=== PATIENT | female | born 2000 | race Caucasian/White ===

== ENCOUNTER 2022-09-27 17:30 | Emergency (ER) | payer OTHER ==
[~2022-09-27] VITALS: Ht 172.7 cm; Wt 95.3 kg
[2022-09-27 17:58] VITALS: BP 152/84
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
[2022-09-27] MEDS ORDERED: BACITRACIN OINT 500 UNITS/GM PKT TP ONE (18:15)
[2022-09-27] MEDS ORDERED: IBUPROFEN 600 MG TAB PO ONE (18:15)
[2022-09-27] MEDS ORDERED: LIDOCAINE MPF 1% 10 MG/ML VIAL INJ ONE (18:15)
--- NOTE | 2022-09-27 18:18 | NUR ---
L INDEX FINGER IRRIGATED
[2022-09-27] MEDS ORDERED: BACI-416 TP (19:23)
[2022-09-27] MEDS ORDERED: IBUP-2213 PO (19:23)
[2022-09-27 19:51] VITALS: BP 152/84
--- NOTE | 2022-09-27 19:55 | NUR ---
Patient discharged with v/s stable. Written and verbal after care instructions given and explained. New rx ibuprofen bacitracin. Patient verbalized understanding. Ambulatory with steady gait. All questions addressed prior to discharge. Advised to follow up with PMD.
== END 2022-09-27 19:51 | disposition home or self-care (01) ==
LOC: MED 17:30
DX: S61.215A Laceration without foreign body of left ring finger without damage to nail, initial encounter (principal); W26.9XXA Contact with unspecified sharp object(s), initial encounter; Y93.89 Activity, other specified; Y92.89 Other specified places as the place of occurrence of the external cause; Y99.8 Other external cause status
CPT/HCPCS: 12001; 90471; 90715; 99283; J2001